=== PATIENT | female | born 1955 | race Hispanic/Latino ===

== ENCOUNTER → 2019-01-31 | Day surgery (SDC) | payer MEDICARE ==
[~2019-01-31] MED LIST: FENTANYL CITRATE/PF 100MCG/2 ML INJ ONE; MIDAZOLAM HCL 2 MG/2 ML VIAL ONE; OR PHACO EYE KIT ONE; PREOP PHACO EYE KIT ONE
--- OUTSIDE RECORDS SUMMARY | 2019-01-31 10:54 | XMS REPORT ---
Author Author [facility] Address Unknown Phone Unavailable Care Team Providers Care Mixer Pigment Name Role Phone CANDE TURNER PP Unavailable CANDE TURNER Unavailable Unavailable Problems This patient has no known problems. Allergies, Adverse Reactions, Alerts This patient has no known allergies or adverse reactions. Medications This patient has no known medications. Encounters Start Date/Time End Date/Time Encounter Type Admission Type Attending Clinicians Care Facility Care Department Encounter ID 2018-10-11 11:00:00 2018-10-11 11:00:00 Outpatient [facility] [id number] 2016-08-25 10:42:00 2016-08-25 10:42:00 Outpatient [facility] [id number] Results Test Description Test Time Test Comments Text Results Atomic Results Result Comments Basic Metabolic Panel 2016-08-19 18:23:00 Sodium (test code=NA) 141 mmol/L 135-145 Potassium (test code=K) 4.2 mmol/L 3.5-5.1 Chloride (test code=CL) 101 mmol/L 98-105 Carbon Dioxide (test code=CO2) 28 mmol/L 22-29 Glucose (test code=GLU) 99 mg/dL 70-115 Blood Urea Nitrogen (test code=BUN) 9 mg/dL 8-23 Creatinine (test code=CREAT) 0.5 mg/dL 0.5-0.9 Calcium (test code=CA) 10.6 mg/dL 8.3-10.5 BUN/Creatinine Ratio (test code=BCRATIO) 18.0 Anion Gap (test code=AGAP) 12 mmol/L 7-16 Estimated GFR (test code=GFR) >60 mL/min/1.73m2 eGFR (estimated Glomerular Filtration Rate) is an estimated value,calculated from the patient's serum creatinine using the MDRD equation.It is NOT the patient's actual GFR. The eGFR provides a more clinicallyuseful measure of kidney disease than serum creatinine alone.This calculation takes sex and race into account, if the informationis provided. If the race is not provided, and the patient isAfrican-[place], multiply by 1.212. If sex is not provided, and thepatient is female, multiply by 0.742. Results for patients <18 years ofage have not been validated by the MDRD study and should be interpretedwith caution.eGFR Result Interpretation:eGFR > or=60 is in the Normal RangeeGFR < 60 may mean kidney diseaseeGFR < 15 may mean kidney failureRanges recommended by the National Kidney Foundat ion,http://nkdep.nih.gov CBC with [id number] 17:57:00* Test Item Value Reference Range Comments WBC (test code=WBC) 9.5 K/cumm 4.4-10.5 RBC (test code=RBC) 4.97 M/cumm 3.75-5.20 Hemoglobin (test code=HGB) 14.5 gm/dL 12.2-14.8 Hematocrit (test code=HCT) 46.0 % 36.5-44.4 MCV (test code=MCV) 92.7 fL 80-100 MCH (test code=MCH) 29.2 pg 27.0-32.5 MCHC (test code=MCHC) 31.5 g/dL 32.0-37.5 RDW (test code=RDW) 13.3 % 11.5-14.5 Platelet Count (test code=PLTCT) 332 K/cumm 140-440 MPV (test code=MPV) 8.1 fL Diff Method (test code=DIFFM) Auto Neutrophil (test code=NEUT) 68.9 % 36-70 Lymphocyte (test code=LYMPH) 23.4 % 12-44 Monocyte (test code=MONO) 6.7 % 0-11 Eosinophil (test code=EOS) 0.7 % 0-7 Basophil (test code=BASO) 0.3 % 0-2 Neutro Abs (test code=ANEUT) 6.5 K/cumm 1.6-7.4 Lymph Abs (test code=ALYMPH) 2.2 K/cumm 0.5-4.6 Aurora Abs (test code=AMONO) 0.6 K/cumm 0.0-1.2 Eos Abs (test code=AEOS) 0.07 K/cumm 0.00-0.74 Baso Abs (test code=ABASO) 0.0 K/cumm 0.00-0.21
[2019-01-31 14:05] VITALS: BP 103/58
== END | disposition home or self-care (01) ==
LOC: OR 10:52
PROVIDERS: ATTEND Ophthalmology
DX: H25.11 Age-related nuclear cataract, right eye (principal)
CPT/HCPCS: 66984; J2250; J3010; V2632

== ENCOUNTER → 2019-02-21 | Day surgery (SDC) | payer MEDICARE ==
[~2019-02-21] MED LIST changes: +LIDOCAINE HCL 1% 2 ML AMP ONE
[2019-02-21 12:00] VITALS: BP 122/91
== END | disposition home or self-care (01) ==
LOC: OR 08:20
PROVIDERS: ATTEND Ophthalmology
DX: H25.12 Age-related nuclear cataract, left eye (principal)
CPT/HCPCS: 66984; J2001; J2250; J3010; V2632